=== PATIENT | male | born 1960 | race Caucasian/White ===

== ENCOUNTER 2023-09-14 09:35 | Outpatient (CLI) | payer OTHER ==
[2023-09-14] MEDS ORDERED: Iopamidol 300 61% 100 ML VIAL FS ONE (09:58)
== END 2023-09-14 09:36 | disposition home or self-care (01) ==
LOC: CSHCT 09:35
PROVIDERS: ATTEND Internal Medicine Hematology & Oncology
DX: C34.81 Malignant neoplasm of overlapping sites of right bronchus and lung (principal); C78.7 Secondary malignant neoplasm of liver and intrahepatic bile duct; J47.9 Bronchiectasis, uncomplicated; J98.4 Other disorders of lung; Z98.890 Other specified postprocedural states
CPT/HCPCS: 71260; 74177; 82565; Q9967